=== PATIENT | female | born 1985 | race Caucasian/White ===

== ENCOUNTER 2021-08-16 15:00 | Outpatient (REF) | payer OTHER, SELFPAY ==
--- NOTE | ~2021-08-16 | XR_ITS ---
EXAMINATION: XR LUMBOSACRAL SPINE WITH OBLIQUES CLINICAL INFORMATION: Spondylolysis. COMPARISON: None TECHNIQUE: AP, both oblique, and lateral views of the lumbar spine. Lateral view of the lumbosacral junction. FINDINGS: There is 0.8 cm of anterolisthesis of L5 on S1 which does not significantly changes in flexion and extension views. Otherwise, there is anatomic alignment. Bilateral L5 pars defects. No acute compression deformities. Moderate disc space narrowing and facet arthropathy at L4-L5 and L5-S1. IUD is identified in the pelvis. Nonobstructive bowel gas pattern. XR/XR lumbar spine 6V w bending IMPRESSION: Bilateral L5 pars defects with 0.8 cm of anterolisthesis at L5-S1 which is stable on flexion and extension views. Moderate lumbar spondylosis from L4 through S1, more pronounced at L5-S1. For evaluation of nerve root impingement and canal narrowing, correlation with an MR is recommended if clinically indicated.
== END 2021-08-16 15:01 | disposition home or self-care (01) ==
LOC: HO.XRAY 15:00
PROVIDERS: PCP Internal Medicine; Visit Provider Nurse Practitioner Family
DX: M43.06 Spondylolysis, lumbar region (principal)
CPT/HCPCS: 72114